=== PATIENT | male | born 1970 | race Caucasian/White ===

== ENCOUNTER 2017-07-22 08:29 | Emergency (ER) | payer OTHER ==
[2017-07-22] MEDS ORDERED: Levofloxacin/Dextrose 5%-Water 750 MG in Premix Bag 1 BAG IV ONE (08:52)
--- NOTE | 2017-07-22 08:52 | EDM.PDOC ---
ED HPI GENERAL MEDICAL PROBLEM - General Chief Complaint: Abdominal Pain Stated Complaint: LOWER LEFT ABDOMINAL PAINS Time Seen by Provider: 07/22/17 08:49 Source of Information: Reports: Patient History Limitations: Reports: No Limitations - History of Present Illness INITIAL COMMENTS - FREE TEXT/NARRATIVE: 47-year-old male presents to the ED due to left lower quadrant abdominal pain. He states 2 days ago he started to appreciate diffuse lower abdominal discomfort across both sides of his lower abdomen. Pain tends to be intermittent. Yesterday pain became a little bit worse and last night it seemed to settle in his left lower quadrant. 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 Difficult to walk difficult to cough and difficult to get in and out of the vehicle to do left lower quadrant abdominal pain. Patient had an appendectomy 3 years ago. He's had previous umbilical hernia [place] 2 with mesh grafting placed the last 6 sitting. Patient has no history of diverticulitis. He did have a normal bowel movement this morning which seemed to make the pain a little bit worse for a while after the bowel movement. He did have some fever and chills the night before last. Not so much last night. Appetite is poor he has not eaten today. Onset: Gradual Onset Date: 07/20/17 Duration: Day(s): Location: Reports: Abdomen (Diffuse lower abdominal discomfort now settling in the left lower quadrant.) Quality: Reports: Ache, Other Severity: Moderate (Constant aching pressure discomfort with occasional sharp stabbing pain. Currently rates the pain is 5 out of 10.) Improves with: Reports: Rest Worsens with: Reports: Other (Coughing sneezing or getting in and out of his vehicle.), Movement Associated Symptoms: Denies: Confusion, Chest Pain, Cough, cough w sputum, Diaphoresis, Fever/Chills, Headaches, Loss of Appetite, Malaise, Nausea/Vomiting , Rash, Seizure, Shortness of Breath, Syncope, Weakness Treatments [employer]: Reports: Other (see below) (None.) Left Lower Abdomen Pain Score (Numeric/FACES): 4 - Related Data Allergies Allergy/AdvReac Type Severity Reaction Status Date / Time No Known Allergies Allergy Verified 07/22/17 08:44 Home Meds: Home Meds Furosemide [Lasix] 20 mg PO DAILY 12/06/13 [History] Levothyroxine [Synthroid] 88 mcg PO DAILY 12/06/13 [History] Lisinopril [Prinivil] 10 mg PO DAILY 12/06/13 [History] Rosuvastatin [Crestor] 20 mg PO DAILY 12/06/13 [History] Sildenafil [Viagra] 50 mg PO DAILY PRN 12/06/13 [History] amLODIPine [Norvasc] 10 mg PO DAILY 12/06/13 [History] Sennosides/Docusate Sodium [Senna-S] 2 tab PO BID #60 tablet 12/07/13 [Rx] Ciprofloxacin HCl [Cipro] 500 mg PO BID #18 tablet 07/22/17 [Rx] metroNIDAZOLE [Flagyl] 500 mg PO Q8H #24 tab 07/22/17 [Rx] Past Medical History HEENT History: Reports: Impaired Vision Cardiovascular History: Reports: Hypertension - Past Surgical History GI Surgical History: Reports: Appendectomy Social & Family History - Tobacco Use Smoking Status *Q: Never Smoker - Caffeine Use Caffeine Use: Reports: Coffee - Alcohol Use Days Per Week of Alcohol Use: 2 - Recreational Drug Use Recreational Drug Use: No - Living Situation & Occupation Living situation: Reports: Single Occupation: Employed ED ROS GENERAL - Review of Systems Review Of Systems: See Below Constitutional: Reports: Fever, Chills, Decreased Appetite. Denies: Malaise, Weakness (The night before last but not last night.), Fatigue, Weight Loss HEENT: Reports: No Symptoms Respiratory: Reports: No Symptoms Cardiovascular: Reports: No Symptoms Endocrine: Reports: No Symptoms GI/Abdominal: Reports: Abdominal Pain (See history of present illness.). Denies : Nausea, Vomiting : Reports: No Symptoms Musculoskeletal: Reports: Back Pain (Cause with diffuse low back pain.) Skin: Reports: No Symptoms Neurological: Reports: No Symptoms Psychiatric: Reports: No Symptoms Hematologic/Lymphatic: Reports: No Symptoms Immunologic: Reports: No Symptoms ED EXAM, GI/ABD - Physical Exam Exam: See Below Exam Limited By: No Limitations General Appearance: Alert, WD/WN, No Apparent Distress Eyes: Bilateral: Normal Appearance Throat/Mouth: Normal Inspection, Normal Lips, Normal Teeth, Normal Gums, Normal Oropharynx Head: Atraumatic, Normocephalic Neck: Normal Inspection, Supple, Non-Tender, Full Range of Motion. No: Lymphadenopathy (L), Lymphadenopathy (R) Respiratory/Chest: No Respiratory Distress, Lungs Clear, Normal Breath Sounds Cardiovascular: Normal Peripheral Pulses, Regular Rate, Rhythm, No Edema, No Gallop GI/Abdominal Exam: Soft, No Organomegaly, Tender (Bowel sounds are diminished. Very tender left lower quadrant of the abdomen in the distribution of the sigmoid colon. He can localize the pain very well. He has marked guarding and rebound tenderness in this area.), Abnormal Bowel Sounds, Other (Multiple surgical scars around his umbilicus from previous umbilical hernia raphe and mesh grafting. Previous appendectomy.). No: Hernia Back Exam: Normal Inspection, Full Range of Motion. No: CVA Tenderness (L), CVA Tenderness (R) Extremities: Normal Inspection, Normal Range of Motion, Non-Tender, No Pedal Edema Neurological: Alert, Oriented, CN II-XII Intact, Normal Cognition, Normal Gait Psychiatric: Normal Affect, Normal Mood Skin Exam: Warm, Dry, Intact, Normal Color, No Rash Course - Vital Signs Last Recorded V/S: Last Vital Signs Temp 36.7 C 07/22/17 08:38 Pulse 88 07/22/17 12:20 Resp 20 07/22/17 12:20 BP 150/99 H 07/22/17 12:20 Pulse Ox 92 L 07/22/17 12:20 - Orders/Labs/Meds Orders: Active Orders 24 hr Category Date Time Status URINALYSIS W/MICROSCOPIC [UA W/MICROSCOPIC] [URIN] Stat Lab 07/22/17 09:00 Ordered Labs: Laboratory Tests 07/22/17 07/22/17 07/22/17 Range/Units 09:00 09:05 09:05 WBC 9.21 H (4.23-9.07) K/mm3 RBC 5.14 (4.63-6.08) M/mm3 Hgb 15.1 (13.7-17.5) gm/L Hct 46.0 (40.1-51.0) % MCV 89.5 (79.0-92.2) fl MCH 29.4 (25.7-32.2) pg MCHC 32.8 (32.2-35.5) g/dl RDW Std Deviation 47.0 H (35.1-43.9) fL Plt Count 213 (163-337) K/mm3 MPV 10.5 (9.4-12.3) fl Neutrophils % (Manual) 61 H (40-60) % Band Neutrophils % 0 (0-10) % Lymphocytes % (Manual) 33 (20-40) % Atypical Lymphs % 0 % Monocytes % (Manual) 5 (2-10) % Eosinophils % (Manual) 1 (0.8-7.0) % Basophils % (Manual) 0 L (0.2-1.2) Platelet Estimate Adequate RBC Morph Comment Normal Sodium 141 (136-145) mEq/L Potassium 3.6 (3.5-5.1) mEq/L Chloride 105 (98-107) mEq/L Carbon Dioxide 29 (21-32) mEq/L Anion Gap 10.6 (5-15) BUN 16 (7-18) mg/dL Creatinine 0.8 (0.7-1.3) mg/dL Est Cr Clr Drug Dosing 133.50 mL/min Estimated GFR (MDRD) > 60 (>60) mL/min BUN/Creatinine Ratio 20.0 H (14-18) Glucose 103 (74-106) mg/dL Calcium 8.8 (8.5-10.1) mg/dL Total Bilirubin 0.7 (0.2-1.0) mg/dL AST 12 L (15-37) U/L ALT 31 (16-63) U/L Alkaline Phosphatase 93 (46-116) U/L C-Reactive Protein 11.7 H* (<1.0) mg/dL Total Protein 7.8 (6.4-8.2) g/dl Albumin 3.8 (3.4-5.0) g/dl Globulin 4.0 gm/dL Albumin/Globulin Ratio 1.0 (1-2) Lipase 117 (73-393) U/L Urine Color Yellow (Yellow) Urine Appearance Clear (Clear) Urine pH 6.0 (5.0-8.0) Ur Specific [place] 1.025 (1.005-1.030) Urine Protein Negative (Negative) Urine Glucose (UA) Negative (Negative) Urine Ketones Negative (Negative) Urine Occult Blood Negative (Negative) Urine Nitrite Negative (Negative) Urine Bilirubin Negative (Negative) Urine Urobilinogen 1.0 (0.2-1.0) Ur Leukocyte Esterase Negative (Negative) Urine RBC Not seen (0-5) /hpf Urine WBC 0-5 (0-5) /hpf Ur Epithelial Cells 0-5 (0-5) /hpf Urine Bacteria Few (FEW) /hpf Urine Mucus Not seen (FEW) /hpf Meds: Medications Discontinued Medications Generic Name Dose Route Start Last Admin Trade Name Freq PRN Reason Stop Dose Admin Diatrizoate Meglum/Diatrizoate Sod 120 ml 07/22/17 09:31 07/22/17 10:18 Gastrografin 37% PO 07/22/17 09:32 90 ml ONETIME ONE Administration Levofloxacin/Dextrose 750 mg/ 150 mls @ 100 mls/hr 07/22/17 08:52 07/22/17 09 :06 Premix IV 07/22/17 10:21 100 mls/hr ONETIME ONE Administration Sodium Chloride 1,000 mls @ 150 mls/hr 07/22/17 09:00 07/22/17 09:06 Normal Saline IV 150 mls/hr ASDIRECTED SAUMYA Administration Iopamidol 150 ml 07/22/17 09:31 07/22/17 10:18 Isovue-300 (61%) IVPUSH 07/22/17 09:32 150 ml ONETIME ONE Administration Sodium Chloride 10 ml 07/22/17 09:31 07/22/17 10:18 Saline Flush FLUSH 10 ml ONETIME PRN Administration IV FLUSH - Radiology Interpretation Free Text/Narrative:: 47-year-old male presents to the ED with gradually worsening left lower quadrant abdominal pain over the last 2 and half to 3 days. Initially was diffuse discomfort lower abdomen which was intermittent. Over the last 24-36 hours it is settled in his left lower quadrant his abdomen. Examination reveals him to be markedly tender left lower quadrant with rebound and guarding compatible with diverticulitis. He is afebrile at this time. Therefore blood cultures will not be ordered. Routine labs including CBC CMP and a serum lipase. CRP will also be done with a urinalysis. Strongly suspect diverticulitis. Patient will be have to be set up for CT of the abdomen and pelvis with oral and IV contrast. Present he doesn't need anything for pain. IV will be normal saline at 500 mils per hour. I'm going to hang Levaquin 750 mg IV at this point time. - Re-Assessments/Exams Free Text/Narrative Re-Assessment/Exam: 07/22/17 10:53 White count is 9.21 with 61% neutrophils and no bands reported. Hemoglobin is 15.1 with hematocrit of 46.0. Sodium is 141 with a potassium 3.6. Chloride is 105 with a bicarbonate 29. Anion gap is 10.6. BUN is 16 creatinine is 0.8. Glucose is 103 calcium is 8.8. Total bilirubin is 0.7. AST is 12 with an ALT of 31. Alk phosphatase is 93. CRP is elevated at 11.7. Lipase is normal at 117. Urinalysis is normal. 07/22/17 11:55 CT of the abdomen confirms diverticulitis at the junction of the descending and sigmoid colon. There is no diverticular abscess at this time. There is some adjacent bowel wall thickening. Diverticula are seen mostly within portions of the descending sigmoid colon. She'll be treated conservatively with oral antibiotics i.e. Cipro 500 mg twice daily for 10 days and Flagyl 500 mg 3 times a day for 8 days. Given to relieve him from his work duties until next Thursday, July 27. He can't get his work belt or gun belt in place as it rides right over top of his area of diverticulitis. Departure - Departure Time of Disposition: 11:56 Disposition: Home, Self-Care 01 Condition: Fair Clinical Impression: Diverticulitis large intestine Qualifiers: Diverticulitis bleeding: without bleeding Diverticulitis complication: without perforation or abscess Qualified Code(s): K57.32 - Diverticulitis of large intestine without perforation or abscess without bleeding - Discharge Information Prescriptions: Ciprofloxacin HCl [Cipro] 500 mg PO BID #18 tablet metroNIDAZOLE [Flagyl] 500 mg PO Q8H #24 tab Instructions: Diverticulitis, [id number] Referrals: PCP,None [Primary Care Provider] - Forms: ED Department Discharge, ED Return to Work/School Form Additional Instructions: Evaluation the emergent today in regards to gradual worsening left lower quadrant abdominal pain over the last 2-1/2 days. Pain is well localized to the left lower quadrant over the sigmoid colon area. CT scan of the abdomen and pelvis performed with oral contrast reveals an area of acute diverticulitis at the junction of the descending colon and the sigmoid colon exactly where your pain is. Antibiotic since the ED Levaquin 750 mg. You will need to take oral antibiotics for the next 10 days. Take Flagyl 500 mg 3 times daily for the next 8 days. Should start today with the first tablet when you get them and then a second one tonight. Cipro 500 mg twice daily for another 9 days with the first tablet due tomorrow morning. SPECT gradual improvement in the pain over the next 72 hours with low back to normal at that time. Off work until next week Thursday. - My Orders Last 24 Hours: My Active Orders 07/22/17 09:00 URINALYSIS W/MICROSCOPIC [UA W/MICROSCOPIC] [URIN] Stat - Assessment/Plan Last 24 Hours: My Active Orders 07/22/17 09:00 URINALYSIS W/MICROSCOPIC [UA W/MICROSCOPIC] [URIN] Stat
[2017-07-22] MEDS ORDERED: Sodium Chloride 0.9% 1,000 ML IV SCH (09:00)
[2017-07-22] MEDS ORDERED: Iopamidol 612 MG/ML 150 ML Bottle IVPUSH ONE (09:31)
[2017-07-22] MEDS ORDERED: Diatrizoate Meglumine/Diatrizoate Sodium 37% 120 ML Bottle PO ONE (09:31)
[2017-07-22] MEDS ORDERED: Sodium Chloride 0.9% 10 ML Syringe FLUSH PRN (09:31)
--- NOTE | 2017-07-22 11:03 | CT ---
CT abdomen and pelvis Technique: Multiple axial sections were obtained from above the dome of the diaphragm inferiorly through the pubic symphysis. Intravenous and oral contrast was utilized. Delayed images were also obtained through the bladder. Findings: Mild inflammatory change is seen near the junction of the descending and sigmoid colon which is felt compatible with diverticulitis. Diverticuli are seen within portions of the descending and sigmoid colon. There is some adjacent bowel wall thickening being seen but no evidence of diverticular abscess is seen at this time. Visualized lung bases shows slight right basilar atelectasis. Liver shows no focal parenchymal abnormality. Spleen appears within normal limits. Gallbladder contains no calcified gallstones. Adrenal glands appear within normal limits. Pancreas is within normal limits. Kidney show symmetric contrast enhancement without hydronephrosis or mass. Aorta shows no aneurysmal dilatation. No retroperitoneal adenopathy or mesenteric abnormalities are seen. No pelvic mass or adenopathy is seen. Small fat-containing bilateral inguinal hernias are noted. Slight prostate calcification is seen. Delayed images shows contrast within the distal ureters and within the bladder. Bone window settings were reviewed which appear within normal limits for the patient's age. Impression: 1. Mild inflammatory change and bowel wall thickening at the junction of the descending and sigmoid colon compatible with diverticulitis. No diverticular abscess is seen at this time. 2. Other incidental findings as noted above. Diagnostic code #3
[2017-07-22 12:23] VITALS: BP 150/99
== END 2017-07-22 12:20 | disposition home or self-care (01) ==
LOC: JD.ED 08:29
DX: K57.32 Diverticulitis of large intestine without perforation or abscess without bleeding (principal); I10 Essential (primary) hypertension; Z79.899 Other long term (current) drug therapy
CPT/HCPCS: 36415; 74177; 80053; 81001; 83690; 85025; 86140; 96361; 96365; 96366; 99284; J1956; J7040; J7050; Q9963; Q9967

== ENCOUNTER 2017-11-07 13:33 | Emergency (ER) | payer OTHER ==
[2017-11-07 15:54] VITALS: BP 175/95
--- NOTE | 2017-11-07 16:28 | EDM.PDOC ---
ED HPI GENERAL MEDICAL PROBLEM - General Chief Complaint: Lower Extremity Injury/Pain Stated Complaint: LEFT LEG SWELLING Time Seen by Provider: 11/07/17 16:08 Source of Information: Reports: Patient History Limitations: Reports: No Limitations - History of Present Illness INITIAL COMMENTS - FREE TEXT/NARRATIVE: Patient present for evaluation and treatment of left leg swelling. Patient first of appreciated a brown discoloration and dryness to the left lateral leg about 10 months ago. He was seen by his primary care provider, instructed to put lotion on the area. He then followed up with internal medicine as it did not resolve. No testing has been done. Has not had a biopsy. States that today he experienced increased swelling to the entire leg and increased pain to the discolored area. No chest pain or shortness of breath. - Related Data Allergies Allergy/AdvReac Type Severity Reaction Status Date / Time No Known Allergies Allergy Verified 07/22/17 08:44 Home Meds: Home Meds Furosemide [Lasix] 20 mg PO DAILY 12/06/13 [History] Levothyroxine [Synthroid] 88 mcg PO DAILY 12/06/13 [History] Lisinopril [Prinivil] 10 mg PO DAILY 12/06/13 [History] Rosuvastatin [Crestor] 20 mg PO DAILY 12/06/13 [History] amLODIPine [Norvasc] 10 mg PO DAILY 12/06/13 [History] Past Medical History HEENT History: Reports: Impaired Vision Cardiovascular History: Reports: Hypertension Endocrine/Metabolic History: Reports: Hypothyroidism - Past Surgical History GI Surgical History: Reports: Appendectomy Social & Family History - Tobacco Use Smoking Status *Q: Former Smoker Years of Tobacco use: 6 Packs/Tins Daily: 1 Used Tobacco, but Quit: Yes Month/Year Tobacco Last Used: 03/1992 Second Hand Smoke Exposure: Yes - Caffeine Use Caffeine Use: Reports: Coffee - Recreational Drug Use Recreational Drug Use: No - Living Situation & Occupation Living situation: Reports: Single Occupation: Employed Review of Systems - Review of Systems Review Of Systems: See Below Respiratory: Denies: Shortness of Breath Cardiovascular: Denies: Chest Pain Musculoskeletal: Reports: Other (left leg swelling). Denies: Leg Pain Skin: Reports: Dryness (left lateral lower leg), Change in Color (left lateral lower leg). Denies: Pruritis ED EXAM, GENERAL - Physical Exam Exam: See Below Exam Limited By: No Limitations General Appearance: Alert, WD/WN, No Apparent Distress Respiratory/Chest: No Respiratory Distress, Lungs Clear, Normal Breath Sounds Cardiovascular: Normal Peripheral Pulses, Regular Rate, Rhythm, No Murmur Peripheral Pulses: 2+: Posterior Tibial (L), Dorsalis Pedis (L) Extremities: Other (swelling to the left lower leg). No: Herlinda's Sign, Limited Range of Motion, Increased Warmth Neurological: Alert, Oriented, Normal Cognition Psychiatric: Normal Affect, Normal Mood Skin Exam: Warm, Dry, Normal Color, Other (approximately 5cm in dismeter area to the left lateral lower leg, dry, flaking, nontender, irregular border, surrounding area is slightly pallid compared to the rest of the leg) Course - Vital Signs Last Recorded V/S: Last Vital Signs Temp 98.4 F 11/07/17 15:52 Pulse 86 11/07/17 15:52 Resp 20 11/07/17 15:52 BP 175/95 H 11/07/17 15:52 Pulse Ox 95 11/07/17 15:52 - Orders/Labs/Meds Labs: Laboratory Tests 11/07/17 11/07/17 Range/Units 16:40 16:40 WBC 8.19 (4.23-9.07) K/mm3 RBC 4.98 (4.63-6.08) M/mm3 Hgb 15.1 (13.7-17.5) gm/L Hct 44.8 (40.1-51.0) % MCV 90.0 (79.0-92.2) fl MCH 30.3 (25.7-32.2) pg MCHC 33.7 (32.2-35.5) g/dl RDW Std Deviation 44.4 H (35.1-43.9) fL Plt Count 219 (163-337) K/mm3 MPV 10.1 (9.4-12.3) fl Neut % (Auto) 65.9 (34.0-67.9) % Lymph % (Auto) 21.9 (21.8-53.1) % [place] % (Auto) 8.4 (5.3-12.2) % Eos % (Auto) 3.5 (0.8-7.0) Baso % (Auto) 0.2 (0.1-1.2) % Neut # (Auto) 5.39 H (1.78-5.38) K/mm3 Lymph # (Auto) 1.79 (1.32-3.57) K/mm3 [place] # (Auto) 0.69 (0.30-0.82) K/mm3 Eos # (Auto) 0.29 (0.04-0.54) K/mm3 Baso # (Auto) 0.02 (0.01-0.08) K/mm3 Sodium 140 (136-145) mEq/L Potassium 3.4 L (3.5-5.1) mEq/L Chloride 105 (98-107) mEq/L Carbon Dioxide 27 (21-32) mEq/L Anion Gap 11.4 (5-15) BUN 14 (7-18) mg/dL Creatinine 0.9 (0.7-1.3) mg/dL Est Cr Clr Drug Dosing TNP Estimated GFR (MDRD) > 60 (>60) mL/min BUN/Creatinine Ratio 15.6 (14-18) Glucose 169 H (74-106) mg/dL Calcium 8.5 (8.5-10.1) mg/dL Total Bilirubin 0.4 (0.2-1.0) mg/dL AST 21 (15-37) U/L ALT 35 (16-63) U/L Alkaline Phosphatase 95 (46-116) U/L C-Reactive Protein 0.5 (<1.0) mg/dL Total Protein 7.3 (6.4-8.2) g/dl Albumin 3.6 (3.4-5.0) g/dl Globulin 3.7 gm/dL Albumin/Globulin Ratio 1.0 (1-2) - Radiology Interpretation Free Text/Narrative:: ultrasound of the LLE impression per vrad: Normal left lower extremity duplex venous ultrasound. - Re-Assessments/Exams Free Text/Narrative Re-Assessment/Exam: 11/07/17 18:19 Reviewed the labs and imaging with the patient. No DVT. Nontender area, does not appear to be cellulitis. I do recommend follow-up in the clinic. He may require biopsy to help better determine what this is on his leg. Recommend Dr. Sanders or Shell Causey. discharge instructions as documented. Departure - Departure Time of Disposition: 18:20 Disposition: Home, Self-Care 01 Condition: Fair Clinical Impression: Skin lesion, Leg swelling - Discharge Information *PRESCRIPTION DRUG MONITORING PROGRAM REVIEWED*: No *COPY OF PRESCRIPTION DRUG MONITORING REPORT IN PATIENT FLORENTIN: No Instructions: Edema Referrals: Shelly Sanders MD [Physician] - Forms: ED Department Discharge Additional Instructions: Recommend elevating the leg and applying something like an Jonah bandage to help with the swelling. [id number] Tylenol or Motrin as needed for pain. Follow-up in the clinic this week. Recommend Dr. Sanders or Shell Causey at the [facility]. Recommend considering having the area biopsied. They'll be able to do this in the clinic. Call [phone] to schedule with one of these providers. Please return to the ER for symptoms change or worsen.
== END 2017-11-07 18:30 | disposition home or self-care (01) ==
LOC: JD.ED 13:33
DX: M79.89 Other specified soft tissue disorders (principal); L98.9 Disorder of the skin and subcutaneous tissue, unspecified; I10 Essential (primary) hypertension; Z79.899 Other long term (current) drug therapy; Z87.891 Personal history of nicotine dependence
CPT/HCPCS: 36415; 80053; 85025; 86140; 93971-LT; 99283; 99284-25